=== PATIENT | male | born 1970 | race Caucasian/White ===

== ENCOUNTER 2021-11-23 14:26 | Emergency (ER) | payer OTHER ==
[~2021-11-23] VITALS: Ht 188 cm; Wt 81.6 kg
== END 2021-11-23 17:51 | disposition home or self-care (01) ==
LOC: ER 14:26
DX: T63.691A Toxic effect of contact with other venomous marine animals, accidental (unintentional), initial encounter (principal); Y92.832 Beach as the place of occurrence of the external cause; Z88.2 Allergy status to sulfonamides